=== PATIENT | female | born 1980 | race Caucasian/White ===

== ENCOUNTER 2018-03-13 17:23 | Emergency (ER) | payer MEDICAID ==
[2018-03-13 19:27] VITALS: BP 105/61
== END 2018-03-13 19:28 | disposition home or self-care (01) ==
LOC: D.ER 17:23
DX: S01.01XA Laceration without foreign body of scalp, initial encounter (principal); W18.09XA Striking against other object with subsequent fall, initial encounter; Y93.89 Activity, other specified; Y92.89 Other specified places as the place of occurrence of the external cause; G40.909 Epilepsy, unspecified, not intractable, without status epilepticus